=== PATIENT | male | born 1970 ===

== ENCOUNTER 2019-12-31 05:55 | Day surgery (SDC) | payer OTHER ==
[~2019-12-31 05:55] MED LIST: FLONASE16 GM; ZYRTEC10 M3 PO
== END 2019-12-31 15:35 | disposition home or self-care (01) ==
LOC: CIR.AMB 05:55 → ADM 08:15 → CIR.AMB 08:15
PROVIDERS: ATTEND Colon & Rectal Surgery
DX: K64.8 Other hemorrhoids (principal); K64.4 Residual hemorrhoidal skin tags